=== PATIENT | female | born 1985 | race Caucasian/White ===

== ENCOUNTER 2018-10-19 19:32 | Emergency (ER) | payer SELFPAY ==
[2018-10-19] MEDS ORDERED: LORAZEPAM 0.5 MG TABLET PO ONE (19:54)
--- NOTE | 2018-10-19 19:58 | Emergency Department Record ---
History of Present Illness - General Chief Complaint: Chest Pain Stated Complaint: CHEST PAIN Time Seen by Provider: 10/19/18 19:37 Source: Patient Mode of Arrival: Wheelchair Limitations: No limitations - History of Present Illness Initial Comments: 33 yo female presents to ED for evaluation for a "panic attack" this evening. Patient reports that she has been under a lot of stress, reports taking Xanax 1 hour prior to arrival. Patient reports chest pain resulting from her symptoms. Patient denies health problems other than sciatica that she takes [place] and Motrin for as needed. MD Complaint: Chest pain Onset/Timin -: Minutes(s) Onset: Other Pain Location: Left chest, Right chest Pain Radiation: None Severity: Moderate Severity scale (1-10): >10 Quality: Heaviness Consistency: Constant Improves With: Other Worsens With: Movement Context: Other Anginal Symptoms: Other Treatments Prior to Arrival: Other Treatment Prior to Arrival Comment:: XANAX - Related Data On Oral Contraceptives: Yes Home Medications Medication Instructions Recorded Confirmed Last Taken Alprazolam 1 tab PO DAILY PRN 10/19/18 10/19/18 10/19/18 Ethinyl Estradiol/Drospirenone 1 each PO DAILY 10/19/18 10/19/18 Unknown [Criss 28 Tablet] Previous Rx's Medication Instructions Recorded Ibuprofen [Motrin] 600 mg PO Q6H PRN #20 tab 05/08/14 Allergies Allergy/AdvReac Type Severity Reaction Status Date / Time No Known Drug Allergies Allergy Verified 05/08/14 14:40 Travel Screening - Travel/Exposure Within Last 30 Days Have you traveled within the last 30 days?: No - Travel Symptoms Symptom Screening: None Review of Systems Constitutional: Denies: Chills, Fever, Malaise, Night sweats Eyes: Denies: Eye discharge, Eye pain ENT: Denies: Congestion, Ear pain, Epistaxis Respiratory: Denies: Cough, Dyspnea Cardiovascular: Reports: Chest pain. Denies: Dyspnea on exertion Endocrine: Denies: Fatigue, Heat or cold intolerance Gastrointestinal: Denies: Abdominal pain, Nausea, Vomiting Genitourinary: Denies: Incontinence, Retention Musculoskeletal: Denies: Arthralgia, Back pain Skin: Denies: Bruising, Change in color Neurological: Denies: Abnormal gait, Confusion, Seizure Psychiatric: Reports: Anxiety Hematological/Lymphatic: Denies: Anemia, Blood Clots Past Medical History - SOCIAL HISTORY Smoking Status: Never smoker Alcohol Use: None Drug Use: None - RESPIRATORY Hx Respiratory Disorders: No - CARDIOVASCULAR Hx Cardio Disorders: No - NEURO Hx Neuro Disorders: No - GI Hx GI Disorders: No - Hx Genitourinary Disorders: No - ENDOCRINE Hx Endocrine Disorders: No - MUSCULOSKELETAL Hx Musculoskeletal Disorders: Yes - PSYCH Hx Psych Problems: Yes Hx Anxiety: Yes Comment:: Bipolar - HEMATOLOGY/ONCOLOGY Hx Hematology/Oncology Disorders: No Family Medical History Any Significant Family History?: Yes Hx Cancer: Grandparents Hx Dementia: Grandparents Physical Exam - General General Appearance: Alert, Oriented x3, Cooperative, Moderate distress, Anxious, Other (Patient is hyperventilating on examination, examination appears c/w panic attack.) Limitations: No limitations - Head Head exam: Atraumatic, Normocephalic, Normal inspection Head exam detail: negative: Abrasion, Contusion, Jo's sign, General tenderness, Hematoma, Laceration - Eye Eye exam: Normal appearance. negative: Conjunctival injection, Periorbital swelling, Periorbital tenderness, Scleral icterus - ENT Ear exam: negative: Auricular hematoma, Auricular trauma Nasal Exam: negative: Active bleeding, Discharge, Dried blood, Foreign body Mouth exam: negative: Drooling, Laceration, Muffled voice, Tongue elevation - Neck Neck exam: Normal inspection. negative: Meningismus, Tenderness - Respiratory Respiratory exam: Normal lung sounds bilaterally, Other (Tachypnic on examination). negative: Rales, Respiratory distress, Rhonchi, Stridor - Cardiovascular Cardiovascular Exam: Regular rate, Normal rhythm, Normal heart sounds - GI/Abdominal GI/Abdominal exam: Soft. negative: Rebound, Rigid, Tenderness - Rectal Rectal exam: Deferred - exam: Deferred - Extremities Extremities exam: Normal inspection. negative: Pedal edema, Tenderness - Back Back exam: Denies: CVA tenderness (R), CVA tenderness (L) - Neurological Neurological exam: Alert, Normal gait, Oriented X3 - Psychiatric Psychiatric exam: Anxious - Skin Skin exam: Normal color. negative: Abrasion Type of lesion: negative: abrasion Course Vital Signs 10/19/18 19:34 Temperature 98.3 F Pulse Rate 86 Respiratory 42 H Rate Blood Pressure 117/83 Pulse Ox 99 - Reevaluation(s) Reevaluation #1: 10/19/18 19:58 EKG: NSR 82 Normal axis, normal intervals No acute ST-T wave changes Reevaluation #2: 10/19/18 20:35 Laboratory studies were reviewed and appear grossly unremarkable for an acute process except for potassium of 3.1. This is likely due to respiratory acidosis resulting from hyperventilating. Patient was reassessed and reports that she is feeling much better. Patient is relaxed, well appearing, and stable for discharge at this time. Medical Decision Making - Lab Data Result diagrams: 10/19/18 20:15 10/19/18 20:15 Disposition Disposition: Discharge Clinical Impression: Panic attack Disposition: Home, Self-Care Condition: (2) Stable Instructions: Panic Attack (ED) Additional Instructions: Return to ED if your symptoms worsen or if you have any concerns. Follow-up with Dr. Briceno in 3-5 days as directed. Forms: Patient Portal Access Time of Disposition: 20:39 Quality - Quality Measures Quality Measures: N/A - Blood Pressure Screening Does Patient Have Any of the Following: No Blood Pressure Classification: Pre-Hypertensive BP Reading Systolic Measurement: 117 Diastolic Measurement: 83 Screening for High Blood Pressure: < Pre-Hypertensive BP, F/U Documented > [G8950] Pre-Hypertensive Follow-up Interventions: Referral to alternative/primary care provider.
[2018-10-19 20:19] LABS: ABSOLUTE NEUTROPHIL COUNT 5.36; BASO % 0.4 % (0-6); EOS % 1.7 % (0-6); GRAN % 57.1 % (47-80); HEMATOCRIT 38.6 % (35.0-47.0); HEMOGLOBIN 13.3 gm/dl (11.6-16.0); LYMPH % 33.7 % (16-45); MEAN CELL VOLUME 84.1 fl (81-97); MEAN CORPUSCULAR HGB CONC 34.5 g/dl (32-36); MEAN PLATELET VOLUME 10.1 fl (7.4-10.4); MONO % 7.1 % (0-9); PLATELET COUNT 282 K/uL (130-400); RED BLOOD COUNT 4.59 M/uL (3.80-5.40); RED CELL DISTRIBUTION WIDTH 12.3 % (11.5-14.5); WHITE BLOOD COUNT W/O DIFF 9.4 K/uL (4.2-12.2)
[2018-10-19 20:28] LABS: BLOOD UREA NITROGEN 8 mg/dL (6-20); CREATININE 0.9 mg/dL (0.5-0.9); EST GLOMERULAR FILTRATION RATE > 60 mL/min
[2018-10-19 20:29] LABS: TOTAL PROTEIN 7.6 g/dL (6.6-8.7)
[2018-10-19 20:31] LABS: GLUCOSE,RANDOM 91 mg/dL (74-109)
[2018-10-19 20:34] LABS: ALB/GLOB RATIO 1.5 (1.1-1.8); ALBUMIN 4.5 g/dL (4.0-5.0); ALKALINE PHOSPHATASE 52 U/L (35-104); ALT/SGPT 23 U/L (<33); AST/SGOT 21 U/L (10.0-35.0)
== END 2018-10-19 20:49 | disposition home or self-care (01) ==
LOC: ER 19:32
DX: F41.0 Panic disorder [episodic paroxysmal anxiety] (principal); R07.9 Chest pain, unspecified
CPT/HCPCS: 80053; 85025; 93005; 93010; 99284

== ENCOUNTER 2018-11-18 10:11 | Emergency (ER) | payer SELFPAY ==
[2018-11-18] MEDS ORDERED: PROPARACAINE HCL OPTH 15ML BTL OPTH ONE (10:23)
--- NOTE | 2018-11-18 10:26 | Emergency Department Record ---
History of Present Illness - General Chief complaint: Eye Problem Stated complaint: EYE PAIN Time Seen by Provider: 11/18/18 10:25 Mode of Arrival: Ambulatory - History of Present Illness Initial comments: right upper eyelid is red and swollen and she tried hot compresses and sent her by employer and works at [employer]. Onset/Timin -: Days(s) Onset Description: Gradual Location: Right eye Eye Symptoms: Burning, Itching, Redness Severity: Mild Severity scale (1-10): 9 If Pain, Quality: Aching - Related Data Visual acuity (L) = 20/: 15 Visual acuity (R) = 20/: 20 With correction: No Patient Tetanus UTD (within 5 yrs): Yes (2014) Home Medications Medication Instructions Recorded Confirmed Last Taken Lorazepam [Ativan] 0.5 mg PO BID 11/18/18 11/18/18 1 Day Ago ~11/17/18 Previous Rx's Medication Instructions Recorded Ibuprofen [Motrin] 600 mg PO Q6H PRN #20 tab 05/08/14 Sulfacetamide Sodium [Bleph-10] 1 - 2 drop AFFEYE QID #5 ml 11/18/18 Allergies Allergy/AdvReac Type Severity Reaction Status Date / Time alprazolam [From Xanax] Allergy NEUROTOXICI Verified 11/18/18 10:21 TY cyclobenzaprine Allergy NEUROTOXICI Verified 11/18/18 10:21 [From Flexeril] TY Travel Screening - Travel/Exposure Within Last 30 Days Have you traveled within the last 30 days?: No - Travel/Exposure Within Last Year Have you traveled outside the [place] in the last year?: No - Additonal Travel Details Have you been exposed to anyone with a communicable illness?: No - Travel Symptoms Symptom Screening: None Review of Systems Reviewed: No additional complaints except as noted below Constitutional: Reports: As per HPI. Denies: Chills, Fever, Malaise, Night sweats, Weakness, Weight change Eyes: Reports: As per HPI, Eye discharge, Other (upper right lid swollen and red). Denies: Eye pain, Photophobia, Vision change ENT: Reports: As per HPI. Denies: Congestion, Dental pain, Ear pain, Epistaxis, Hearing loss, Throat pain Respiratory: Reports: As per HPI. Denies: Cough, Dyspnea, Hemoptysis, Stridor, Wheezes Cardiovascular: Reports: As per HPI. Denies: Arrhythmia, Chest pain, Dyspnea on exertion, Edema, Murmurs, Orthopnea, Palpitations, Paroxysmal nocturnal dyspnea, Rheumatic Fever, Syncope Endocrine: Reports: As per HPI. Denies: Fatigue, Heat or cold intolerance, Polydipsia, Polyuria Gastrointestinal: Reports: As per HPI. Denies: Abdominal pain, Constipation, Diarrhea, Hematemesis, Hematochezia, Melena, Nausea, Vomiting Genitourinary: Reports: As per HPI. Denies: Abnormal menses, Discharge, Dyspareunia, Dysuria, Frequency, Hematuria, Incontinence, Retention, Urgency Musculoskeletal: Reports: As per HPI. Denies: Arthralgia, Back pain, Gout, Joint swelling, Myalgia, Neck pain Skin: Reports: As per HPI. Denies: Bruising, Change in color, Change in hair/nails, Lesions, Pruritus, Rash Neurological: Reports: As per HPI. Denies: Abnormal gait, Confusion, Headache, Numbness, Paresthesias, Seizure, Tingling, Tremors, Vertigo, Weakness Psychiatric: Reports: As per HPI. Denies: Anxiety, Auditory hallucinations, Depression, Homicidal thoughts, Suicidal thoughts, Visual hallucinations Hematological/Lymphatic: Reports: As per HPI. Denies: Anemia, Blood Clots, Easy bleeding, Easy bruising, Swollen glands Past Medical History - SOCIAL HISTORY Smoking Status: Never smoker Alcohol Use: None Drug Use: None - RESPIRATORY Hx Respiratory Disorders: No - CARDIOVASCULAR Hx Cardio Disorders: No - NEURO Hx Neuro Disorders: No - GI Hx GI Disorders: No - Hx Genitourinary Disorders: No - ENDOCRINE Hx Endocrine Disorders: No - MUSCULOSKELETAL Hx Musculoskeletal Disorders: Yes - PSYCH Hx Psych Problems: Yes Hx Anxiety: Yes Hx Depression: Yes Comment:: Bipolar, panic attacks - HEMATOLOGY/ONCOLOGY Hx Hematology/Oncology Disorders: No Family Medical History Any Significant Family History?: Yes Hx Cancer: Grandparents Hx Dementia: Grandparents Physical Exam - General General Appearance: Alert, Oriented x3, Cooperative, No acute distress - Head Head exam: Normal inspection - Eye Eye exam: Normal appearance, PERRL, Other (right upper eyelid is red and swollen ,flurscein negative) Pupils: Normal accommodation With correction: No - ENT ENT exam: Normal exam, Mucous membranes moist, Normal external ear exam, Normal orophraynx, TM's normal bilaterally Ear exam: Normal external inspection. negative: External canal tenderness Nasal Exam: Normal inspection. negative: Discharge, Sinus tenderness Mouth exam: Normal external inspection, Tongue normal Teeth exam: Normal inspection. negative: Dental caries Throat exam: Normal inspection. negative: Tonsillar erythema, Tonsillar exudate - Neck Neck exam: Normal inspection, Full ROM. negative: Tenderness - Respiratory Respiratory exam: Normal lung sounds bilaterally. negative: Respiratory distress - Cardiovascular Cardiovascular Exam: Regular rate, Normal rhythm, Normal heart sounds - GI/Abdominal GI/Abdominal exam: Soft, Normal bowel sounds. negative: Tenderness - Rectal Rectal exam: Deferred - exam: Deferred - Extremities Extremities exam: Normal inspection, Full ROM, Normal capillary refill. negative: Tenderness - Back Back exam: Reports: Normal inspection, Full ROM. Denies: Muscle spasm, Rash noted, Tenderness - Neurological Neurological exam: Alert, Normal gait, Oriented X3, Reflexes normal - Psychiatric Psychiatric exam: Normal affect, Normal mood - Skin Skin exam: Dry, Intact, Normal color, Warm Course Vital Signs 11/18/18 10:12 Temperature 98.4 F Pulse Rate 73 Respiratory 18 Rate Blood Pressure 120/70 Pulse Ox 100 Disposition Clinical Impression: [place] sty Qualifiers: Laterality: right Eyelid: upper Qualified Code(s): H00.021 - Hordeolum internum right upper eyelid Disposition: Home, Self-Care Condition: (1) Good Instructions: [place] (ED) Additional Instructions: warm compresses follow up with family Prescriptions: Sulfacetamide Sodium [Bleph-10] 1 - 2 drop AFFEYE QID #5 ml Forms: Patient Portal Access Time of Disposition: 10:47 Quality - Quality Measures Quality Measures: N/A - Blood Pressure Screening Does Patient Have Any of the Following: No Blood Pressure Classification: Pre-Hypertensive BP Reading Systolic Measurement: 120 Diastolic Measurement: 70 Screening for High Blood Pressure: < Pre-Hypertensive BP, F/U Documented > [G8950] Pre-Hypertensive Follow-up Interventions: Referral to alternative/primary care provider.
== END 2018-11-18 10:58 | disposition home or self-care (01) ==
LOC: ER 10:11
DX: H00.021 Hordeolum internum right upper eyelid (principal); Y92.511 Restaurant or cafe as the place of occurrence of the external cause; Y99.0 Civilian activity done for income or pay
CPT/HCPCS: 99282

== ENCOUNTER 2018-12-13 10:50 | Emergency (ER) | payer SELFPAY ==
[2018-12-13] MEDS ORDERED: DIPHENHYDRAMINE HCL 50 MG/ML VIAL IVP ONE (10:58)
[2018-12-13] MEDS ORDERED: FAMOTIDINE IV 20 MG in 0.9 % SODIUM CHLORIDE 100ML 100 ML IVPB ONE (10:58)
[2018-12-13] MEDS ORDERED: METHYLPREDNISOLONE PF 125MG/VIAL IM ONE (10:59)
[2018-12-13] MEDS ORDERED: METHYLPREDNISOLONE PF 125MG/VIAL IVP ONE (11:11)
--- NOTE | 2018-12-13 12:04 | Emergency Department Record ---
History of Present Illness - General Chief complaint: Bite Insect/other Stated complaint: SWELLING ON FACE/EYES Time Seen by Provider: 12/13/18 10:58 Source: Patient Mode of Arrival: Ambulatory Limitations: No limitations - History of Present Illness Initial comments: Pt notes swelling to the bridge of her nose onset yesterday and worse today. Thinks she was stung or bit by something. Today noted a small "pimple" at the site on bridge of nose and she "popped it". No fever, no DM. No visual changes but notes swelling of eye lids bilateral both upper and lower. No [place], no Difficulty swallowing, No wheeze. No new foods or meds. Onset/Timin -: Days(s) Location: Face Severity: Moderate Severity scale (1-10): 10 Quality: Other Consistency: Constant Improves with: None Worsens with: None Context: None Associated symptoms: Denies other symptoms Treatments Prior to Arrival: None - Related Data Previous Rx's Medication Instructions Recorded Ibuprofen [Motrin] 600 mg PO Q6H PRN #20 tab 05/08/14 Sulfacetamide Sodium [Bleph-10] 1 - 2 drop AFFEYE QID #5 ml 11/18/18 Diphenhydramine HCl [Benadryl] 50 mg PO Q6H 2 Days #40 cap 12/13/18 Famotidine [Pepcid] 20 mg PO BID 5 Days #10 tablet 12/13/18 Prednisone [Prednisone 20Mg] 40 mg PO DAILY 5 Days #10 tab 12/13/18 Sulfamethoxazole/Trimethoprim 1 each PO BID 7 Days #14 tablet 12/13/18 [Bactrim Ds Tablet] Allergies Allergy/AdvReac Type Severity Reaction Status Date / Time alprazolam [From Xanax] Allergy NEUROTOXICI Verified 12/13/18 10:55 TY cyclobenzaprine Allergy NEUROTOXICI Verified 12/13/18 10:55 [From Flexeril] TY Travel Screening - Travel/Exposure Within Last 30 Days Have you traveled within the last 30 days?: No - Travel/Exposure Within Last Year Have you traveled outside the [place] in the last year?: No - Additonal Travel Details Have you been exposed to anyone with a communicable illness?: No - Travel Symptoms Symptom Screening: None Review of Systems Constitutional: Denies: Chills, Fever, Weakness Eyes: Reports: As per HPI. Denies: Eye discharge, Eye pain, Vision change ENT: Denies: Congestion, Ear pain, Throat pain Respiratory: Denies: Cough, Dyspnea, Stridor, Wheezes Cardiovascular: Denies: Arrhythmia, Chest pain, Syncope Endocrine: Denies: Fatigue Gastrointestinal: Denies: Abdominal pain, Diarrhea, Nausea, Vomiting Musculoskeletal: Denies: Arthralgia Skin: Reports: As per HPI, Rash. Denies: Bruising Neurological: Denies: Headache, Seizure Psychiatric: Denies: Anxiety Hematological/Lymphatic: Denies: Anemia Past Medical History - SOCIAL HISTORY Smoking Status: Never smoker Alcohol Use: None Drug Use: None - RESPIRATORY Hx Respiratory Disorders: No - CARDIOVASCULAR Hx Cardio Disorders: No - NEURO Hx Neuro Disorders: No - GI Hx GI Disorders: No - Hx Genitourinary Disorders: No - ENDOCRINE Hx Endocrine Disorders: No - MUSCULOSKELETAL Hx Musculoskeletal Disorders: Yes - PSYCH Hx Psych Problems: Yes Hx Anxiety: Yes Hx Depression: Yes Comment:: Bipolar, panic attacks - HEMATOLOGY/ONCOLOGY Hx Hematology/Oncology Disorders: No Family Medical History Any Significant Family History?: Yes Hx Cancer: Grandparents Hx Dementia: Grandparents Physical Exam - General General Appearance: Alert, Oriented x3, Cooperative, No acute distress - Head Head exam: Atraumatic. negative: Normocephalic - Eye Eye exam: PERRL, EOMI, Periorbital swelling (Edema of lids BL with upper and lower, swelling noted across bridge of nose ) - ENT ENT exam: Mucous membranes moist, Normal external ear exam, Normal orophraynx, TM's normal bilaterally Nasal Exam: Other (edema over bridge of nose with bite site, no drainage or sign of infection. ) - Neck Neck exam: Normal inspection, Full ROM. negative: Lymphadenopathy - Respiratory Respiratory exam: Normal lung sounds bilaterally. negative: Respiratory distress, Rhonchi, Wheezes - Cardiovascular Cardiovascular Exam: Regular rate, Normal rhythm. negative: Tachycardia Peripheral Pulses: 2+: Radial (R), Radial (L) - GI/Abdominal GI/Abdominal exam: Soft, Normal bowel sounds. negative: Distended, Tenderness - Extremities Extremities exam: Normal inspection. negative: Tenderness - Back Back exam: Reports: Normal inspection. Denies: Paraspinal tenderness - Neurological Neurological exam: Alert, Normal gait, Oriented X3 - Psychiatric Psychiatric exam: Normal affect, Normal mood - Skin Skin exam: Other Type of lesion: Bite/sting (Area to bridge of nose with local "bite site" and edema to bilateral eye lids. ) Course Vital Signs 12/13/18 10:58 Temperature 97.5 F L Pulse Rate 76 Respiratory 20 Rate Blood Pressure 107/73 Pulse Ox 100 - Reevaluation(s) Reevaluation #1: 12/13/18 11:59 Pt up and ambulates to rest room. After BM in toilet pt up walking in [place] felt "light headed". Staff at pt side and siisted her to sit on the floor under her own control. No fall, no head injury. Helped to a wheel chair and returned to room. IV fluids 100cc NS bolus given and juice PO. Pt vitals documented. Initially low but responded nicely to the fluids. Feeling better. Pt's facial swelling is noted to be improving. 12/13/18 12:06 On arrival pt recieved IV and meds as per chart. Improved swelling. Reevaluation #2: 12/13/18 12:17 On further discussion pt states she got a "good amount of pus out" when she "popped it". We will add Bactrim to cover possible skin infection. Disposition Disposition: Discharge Clinical Impression: Cellulitis of nose, external Insect bite of face with local reaction Qualifiers: Encounter type: initial encounter Qualified Code(s): S00.86XA - Insect bite (nonvenomous) of other part of head, initial encounter Disposition: Home, Self-Care Condition: (1) Good Instructions: Insect Bite or Sting (ED), Allergies (ED), Cellulitis (ED) Additional Instructions: Keep ice pack to face 20 minutes on and 20 minutes off. NO HEAT TO AREA Antibiotic ointment to bite site. Take meds as ordered, do not drive car or drink alcohol with medications. See your family doctor in 1-2 days for a recheck. Return to the ED as needed. Prescriptions: Sulfamethoxazole/Trimethoprim [Bactrim Ds Tablet] 1 each PO BID 7 Days #14 tablet Diphenhydramine HCl [Benadryl] 50 mg PO Q6H 2 Days #40 cap Famotidine [Pepcid] 20 mg PO BID 5 Days #10 tablet Prednisone [Prednisone 20Mg] 40 mg PO DAILY 5 Days #10 tab Forms: Patient Portal Access Time of Disposition: 12:19 Quality - Quality Measures Quality Measures: N/A - Blood Pressure Screening Does Patient Have Any of the Following: No Blood Pressure Classification: Normal BP Reading Systolic Measurement: 107 Diastolic Measurement: 73 Screening for High Blood Pressure: < Normal BP, F/U Not Required > [G8783]
[2018-12-13] MEDS ORDERED: TMP/SMZ 160MG/800MG TAB PO ONE (12:19)
== END 2018-12-13 12:30 | disposition home or self-care (01) ==
LOC: ER 10:50
DX: S00.36XA Insect bite (nonvenomous) of nose, initial encounter (principal); J34.0 Abscess, furuncle and carbuncle of nose; W57.XXXA Bitten or stung by nonvenomous insect and other nonvenomous arthropods, initial encounter; Y93.9 Activity, unspecified; F31.9 Bipolar disorder, unspecified
CPT/HCPCS: 99284 ×2; 96374; 96372; 96375; J3490 ×2; J1200; J2930

== ENCOUNTER 2019-04-07 17:40 | Emergency (ER) | payer MEDICAID ==
--- NOTE | 2019-04-07 19:26 | Emergency Department Record ---
History of Present Illness - General Chief Complaint: Back Pain/Injury Stated Complaint: THREW BACK OUT Time Seen by Provider: 04/07/19 19:13 Source: Patient Mode of Arrival: Ambulatory Limitations: No limitations - History of Present Illness Initial Comments: pt lifted and twisted a bucket of ice yesterday and threw her back out. she is unable to straighten up. she has pain in the lower back. she has no numbness and no problems with bowel or bladder. she has had this happen before but this is much worse MD Complaint: Back pain, Back injury Onset/Timin -: Hour(s) Similar Symptoms Previously: Yes Place: Work Radiation: None Severity: Moderate Severity scale (1-10): >10 Quality: Aching, Sharp Improves With: Sitting upright Worsens With: Walking Context: Bending, Turning/twisting, While lifting Associated Symptoms: Difficulty walking Treatment Prior to Arrival Comment:: norco at 1430 with not much relief. - Related Data Previous Rx's Medication Instructions Recorded Ibuprofen [Motrin] 600 mg PO Q6H PRN #20 tab 05/08/14 Ibuprofen [Motrin 600Mg] 600 mg PO Q6H #20 tablet 04/07/19 Orphenadrine Citrate [Norflex] 100 mg PO Q12H PRN #10 tab 04/07/19 Allergies Allergy/AdvReac Type Severity Reaction Status Date / Time alprazolam [From Xanax] Allergy NEUROTOXICI Verified 04/07/19 19:01 TY chocolate flavor Allergy SWELLING Verified 04/07/19 19:04 OF THE LIPS cyclobenzaprine Allergy NEUROTOXICI Verified 04/07/19 19:01 [From Flexeril] TY peanut Allergy SWELLING Verified 04/07/19 19:04 OF THE LIPS Travel Screening - Travel/Exposure Within Last 30 Days Have you traveled within the last 30 days?: No - Travel/Exposure Within Last Year Have you traveled outside the [place] in the last year?: No - Additonal Travel Details Have you been exposed to anyone with a communicable illness?: No - Travel Symptoms Symptom Screening: None Review of Systems Reviewed: No additional complaints except as noted below Constitutional: Reports: As per HPI. Denies: Chills, Fever, Malaise, Night sweats, Weakness, Weight change Eyes: Reports: As per HPI. Denies: Eye discharge, Eye pain, Photophobia, Vision change ENT: Reports: As per HPI. Denies: Congestion, Dental pain, Ear pain, Epistaxis, Hearing loss, Throat pain Respiratory: Reports: As per HPI. Denies: Cough, Dyspnea, Hemoptysis, Stridor, Wheezes Cardiovascular: Reports: As per HPI. Denies: Arrhythmia, Chest pain, Dyspnea on exertion, Edema, Murmurs, Orthopnea, Palpitations, Paroxysmal nocturnal dyspnea, Rheumatic Fever, Syncope Endocrine: Reports: As per HPI. Denies: Fatigue, Heat or cold intolerance, Polydipsia, Polyuria Gastrointestinal: Reports: As per HPI. Denies: Abdominal pain, Constipation, Diarrhea, Hematemesis, Hematochezia, Melena, Nausea, Vomiting Genitourinary: Reports: As per HPI. Denies: Abnormal menses, Discharge, Dyspareunia, Dysuria, Frequency, Hematuria, Incontinence, Retention, Urgency Musculoskeletal: Reports: As per HPI. Denies: Arthralgia, Back pain, Gout, Joint swelling, Myalgia, Neck pain Skin: Reports: As per HPI. Denies: Bruising, Change in color, Change in hair/nails, Lesions, Pruritus, Rash Neurological: Reports: As per HPI. Denies: Abnormal gait, Confusion, Headache, Numbness, Paresthesias, Seizure, Tingling, Tremors, Vertigo, Weakness Psychiatric: Reports: As per HPI. Denies: Anxiety, Auditory hallucinations, Depression, Homicidal thoughts, Suicidal thoughts, Visual hallucinations Hematological/Lymphatic: Reports: As per HPI. Denies: Anemia, Blood Clots, Easy bleeding, Easy bruising, Swollen glands Past Medical History - SOCIAL HISTORY Smoking Status: Never smoker Alcohol Use: None Drug Use: None - RESPIRATORY Hx Respiratory Disorders: No - CARDIOVASCULAR Hx Cardio Disorders: No - NEURO Hx Neuro Disorders: No - GI Hx GI Disorders: No - Hx Genitourinary Disorders: No - ENDOCRINE Hx Endocrine Disorders: No - MUSCULOSKELETAL Hx Musculoskeletal Disorders: Yes - PSYCH Hx Psych Problems: Yes Hx Anxiety: Yes Hx Depression: Yes Comment:: Bipolar, panic attacks - HEMATOLOGY/ONCOLOGY Hx Hematology/Oncology Disorders: No Family Medical History Any Significant Family History?: Yes Hx Cancer: Grandparents Hx Dementia: Grandparents Physical Exam - General General Appearance: Alert, Oriented x3, Cooperative, Mild distress - Head Head exam: Normal inspection - Eye Eye exam: Normal appearance, PERRL, EOMI Pupils: Normal accommodation - ENT ENT exam: Normal exam, Mucous membranes moist, Normal external ear exam, Normal orophraynx Ear exam: Normal external inspection. negative: External canal tenderness Nasal Exam: Normal inspection. negative: Discharge, Sinus tenderness Mouth exam: Normal external inspection, Tongue normal Teeth exam: Normal inspection. negative: Dental caries Throat exam: Normal inspection. negative: Tonsillar erythema, Tonsillar exudate - Neck Neck exam: Normal inspection, Full ROM. negative: Tenderness - Respiratory Respiratory exam: Normal lung sounds bilaterally. negative: Respiratory distress - Cardiovascular Cardiovascular Exam: Regular rate, Normal rhythm, Normal heart sounds - GI/Abdominal GI/Abdominal exam: Soft, Normal bowel sounds. negative: Tenderness - Rectal Rectal exam: Deferred - exam: Deferred - Extremities Extremities exam: Normal inspection, Full ROM, Normal capillary refill. negative: Tenderness - Back Back exam: Reports: Muscle spasm, Paraspinal tenderness, Tenderness. Denies: Normal inspection, Full ROM, Rash noted - Neurological Neurological exam: Alert, CN II-XII intact, Normal gait, Oriented X3 - Psychiatric Psychiatric exam: Normal affect, Normal mood - Skin Skin exam: Dry, Intact, Normal color, Warm Course Vital Signs 04/07/19 18:52 Temperature 98.2 F Pulse Rate 71 Respiratory 16 Rate Blood Pressure 118/74 Pulse Ox 100 Disposition Disposition: Discharge Clinical Impression: Lumbar strain Qualifiers: Encounter type: initial encounter Qualified Code(s): S39.012A - Strain of muscle, fascia and tendon of lower back, initial encounter Disposition: Home, Self-Care Condition: (1) Good Instructions: Low Back Strain (ED) Additional Instructions: follow up with family doctor. return sooner if worse. no lifting more then 5 lbs for 5 days. ice to back for 2 days then moist heat Prescriptions: Ibuprofen [Motrin 600Mg] 600 mg PO Q6H #20 tablet Orphenadrine Citrate [Norflex] 100 mg PO Q12H PRN #10 tab PRN Reason: Muscle Spasms Forms: Patient Portal Access, Return to Work/School Quality - Quality Measures Quality Measures: N/A - Blood Pressure Screening Does Patient Have Any of the Following: No Blood Pressure Classification: Normal BP Reading Systolic Measurement: 118 Diastolic Measurement: 74 Screening for High Blood Pressure: < Normal BP, F/U Not Required > [G8783]
[2019-04-07] MEDS ORDERED: ORPHENADRINE CITRATE 60MG/2ML VIAL IM ONE (19:48)
[2019-04-07] MEDS ORDERED: KETOROLAC 30 MG/ML VIAL IM ONE (19:48)
--- NOTE | 2019-04-07 20:16 | RADIOLOGY REPORT ---
EXAMINATION: LUMBAR SPINE / AP LAT EXAM DATE: 04/07/2019 8:12 PM TECHNIQUE: 2 views of the lumbar spine. INDICATION: Traumatic lower back pain COMPARISON: None FINDINGS Normal anatomic alignment. Vertebral body heights are preserved without evidence of acute fracture. Mild disc height loss at L5-S1. IMPRESSION: No evidence of acute fracture or malalignment. If the patient's back pain is out of proportion to these findings, further characterization with CT i s recommended. Dictated by: Davis Gay MD on 04/07/2019 8:13 PM. .
[2019-04-07] MEDS ORDERED: HYDROMORPHONE HCL 2 MG/ML VIAL IM ONE (20:57)
== END 2019-04-07 21:50 | disposition home or self-care (01) ==
LOC: ER 17:40
DX: S39.012A Strain of muscle, fascia and tendon of lower back, initial encounter (principal); X50.0XXA Overexertion from strenuous movement or load, initial encounter; Y92.511 Restaurant or cafe as the place of occurrence of the external cause; Y99.0 Civilian activity done for income or pay
CPT/HCPCS: 72100; 81025; 96372; 99284; J1885; J2360

== ENCOUNTER 2019-04-09 13:36 | Emergency (ER) | payer MEDICAID ==
[2019-04-09] MEDS ORDERED: HYDROCODONE/APAP 5/325MG TABLET PO ONE (13:45)
[2019-04-09] MEDS ORDERED: CLINDAMYCIN 600MG/50ML PREMIX 600 MG/50 ML BAG IVPB ONE (13:45)
--- NOTE | 2019-04-09 13:46 | Emergency Department Record ---
History of Present Illness - General Stated complaint: RECHECK Time Seen by Provider: 04/09/19 13:44 Source: Patient, Family Mode of Arrival: Ambulatory Limitations: No limitations - History of Present Illness Initial comments: 33 yo female returns for clearance to return to work. She has strained her back. Her pain is completely gone. She has returned to normal activities wi thout pain. No other new concerns or questions. She request note for return to work. complaint: Abscess/boil -: Days(s) Location: Back Quality: Other (No pain) Improves with: None Worsens with: None Context: None Associated symptoms: Denies other symptoms - Related Data Previous Rx's Medication Instructions Recorded Ibuprofen [Motrin] 600 mg PO Q6H PRN #20 tab 05/08/14 Ibuprofen [Motrin 600Mg] 600 mg PO Q6H #20 tablet 04/07/19 Orphenadrine Citrate [Norflex] 100 mg PO Q12H PRN #10 tab 04/07/19 Allergies Allergy/AdvReac Type Severity Reaction Status Date / Time alprazolam [From Xanax] Allergy NEUROTOXICI Verified 04/07/19 19:01 TY chocolate flavor Allergy SWELLING Verified 04/07/19 19:04 OF THE LIPS cyclobenzaprine Allergy NEUROTOXICI Verified 04/07/19 19:01 [From Flexeril] TY peanut Allergy SWELLING Verified 04/07/19 19:04 OF THE LIPS Review of Systems Constitutional: Denies: Chills, Fever, Malaise, Weakness Eyes: Denies: Eye discharge ENT: Denies: Congestion, Throat pain Respiratory: Denies: Cough Cardiovascular: Denies: Chest pain Endocrine: Denies: Fatigue Gastrointestinal: Denies: Abdominal pain, Diarrhea, Nausea, Vomiting Genitourinary: Denies: Dysuria Musculoskeletal: Denies: Arthralgia, Back pain, Myalgia Skin: Denies: Rash Neurological: Denies: Abnormal gait, Headache, Numbness, Paresthesias, Tingling, Tremors, Weakness Psychiatric: Denies: Anxiety Hematological/Lymphatic: Denies: Easy bleeding, Easy bruising Past Medical History - SOCIAL HISTORY Smoking Status: Never smoker Drug Use: None - RESPIRATORY Hx Respiratory Disorders: No - CARDIOVASCULAR Hx Cardio Disorders: No - NEURO Hx Neuro Disorders: No - GI Hx GI Disorders: No - Hx Genitourinary Disorders: No - ENDOCRINE Hx Endocrine Disorders: No - MUSCULOSKELETAL Hx Musculoskeletal Disorders: Yes - PSYCH Hx Psych Problems: Yes Hx Anxiety: Yes Hx Depression: Yes Comment:: Bipolar, panic attacks - HEMATOLOGY/ONCOLOGY Hx Hematology/Oncology Disorders: No Family Medical History Hx Cancer: Grandparents Hx Dementia: Grandparents Physical Exam - General General Appearance: Alert, Oriented x3, Cooperative, No acute distress Limitations: No limitations - Head Head exam: Atraumatic - Eye Eye exam: Normal appearance - ENT ENT exam: Normal exam Ear exam: Normal external inspection Nasal Exam: Normal inspection Mouth exam: Normal external inspection - Neck Neck exam: Normal inspection - Extremities Extremities exam: Normal inspection - Back Back exam: Reports: Normal inspection, Full ROM. Denies: CVA tenderness (R), CVA tenderness (L), Muscle spasm, Paraspinal tenderness, Rash noted, Tenderness, Vertebral tenderness - Neurological Neurological exam: Alert, Normal gait, Oriented X3. negative: Abnormal gait, Motor sensory deficit - Psychiatric Psychiatric exam: Normal affect, Normal mood - Skin Skin exam: Dry, Intact, Normal color, Warm Course - Reevaluation(s) Reevaluation #1: 04/09/19 14:19 The patient is asymptomatic She is cleared to return without restrictions Disposition Disposition: Discharge Clinical Impression: Lumbar strain Disposition: Home, Self-Care Condition: (1) Good Additional Instructions: Return to work without any restrictions on 04/10/19 Time of Disposition: 14:20 Quality - Quality Measures Quality Measures: N/A - Blood Pressure Screening Does Patient Have Any of the Following: No Blood Pressure Classification: Normal BP Reading Systolic Measurement: 113 Diastolic Measurement: 64 Screening for High Blood Pressure: < Normal BP, F/U Not Required > [G8783]
== END 2019-04-09 14:27 | disposition home or self-care (01) ==
LOC: ER 13:36
DX: S39.012D Strain of muscle, fascia and tendon of lower back, subsequent encounter (principal)
CPT/HCPCS: 99281